=== PATIENT | female | born 1980 | race Caucasian/White ===

== ENCOUNTER 2025-07-10 01:46 | Emergency (ER) | payer SELFPAY ==
[2025-07-10 01:48] VITALS: BP 105/73
[2025-07-10 02:00] VITALS: BP 109/71
--- NOTE | 2025-07-10 02:14 | ED.GENMED ---
History of Present Illness
General
Chief Complaint: Alcohol Problem
Source: patient and ambulance crew
Time Seen by Provider: 07/10/25 02:00
History of Present Illness
History of Present Illness:
45-year-old female presenting to the emergency department for evaluation after she was found outside a restaurant where she had eaten, reportedly intoxicated, fell asleep on the bench, also admits to using marijuana this evening. Patient states
that she had 3 alcoholic beverages tonight. She had been out eating dinner with a friend that she had not seen in a long time. Patient arrives to the ER clearly intoxicated without any specific concerns.
Past History
Past History
ED Past Medical History: None
ED Past Surgical History: None
Social History
Tobacco: Non-smoker
Alcohol: Occasional
Drug: Marijuana
Personal: Single
Living: with family
Review of Systems
Review of Systems
All Other Systems: ROS reviewed and negative except as documented in HPI and ROS
Phy Exam
Physical Exam
Physical Exam:
GENERAL: Sleepy, arousable to voice, slurring speech, smells of alcohol
HEAD: Normocephalic atraumatic
EYE: conjunctiva clear, pupils 4 mm, sluggish
NECK: Supple
ENT: o/p clr, mmm.
CARDIAC: Regular rate and rhythm
LUNGS: Clear breath sounds bilaterally, no acute respiratory distress, no wheezes/rales/rhonchi
NEUROLOGICAL: sleepy but does answer questions appropriately
SKIN: Warm and dry, skin intact.
MUSCULOSKELETAL: well perfused.
PSYCH: Normal and appropriate interaction.
Scores
Heart Failure Risk
Heart Failure Risk Score: Not Applicable
Heart Score for Chest Pain Patients
STEMI patient?: Not applicable
Withdrawal Assessment of Alcohol
Withdrawal Assessment Completed?: Not applicable
Course
Vital Signs
Initial and Last Documented VS:
Initial Vital Signs
BP Pulse Ox
105/73 96
07/10/25 01:48 07/10/25 01:48
Last Documented Vital Signs
Temp Pulse Resp BP Pulse Ox
96.9 F L 70 18 118/72 96
07/10/25 05:51 07/10/25 05:51 07/10/25 05:51 07/10/25 06:00 07/10/25 05:30
MDM/Problems Addressed
Differential Diagnosis Includes:
Acute Alcohol Intoxication
Polysubstance use
Less concern for infectious etiology
MDM/Problems Addressed:
45-year-old female presenting to the emergency department for evaluation of what appears to be acute alcohol intoxication. She is very sleepy but able to answer questions appropriately. Will observe in the ER. No obvious emergent pathologies but
patient clearly not able to be sent home at present time. Patient noted she lives with mother who does live locally
*Pulse Oximetry
SaO2: 95
Oxygen Mode of Delivery: Room air
Patient hypoxic: no
*Critical Care Note
Total Time (30-74mins, 75-104mins- exclusive of procedures): Not Applicable
ED Attending Note
-
Portions of this chart may have been created with voice recognition software.� Occasional wrong word or��sound alike� substitutions may have occurred due to the inherent limitations of voice recognition software.
Discharge Plan
Departure
Patient Disposition: Home (Routine Discharge)
Date of Disposition: 07/10/25
Time of Disposition: 02:40
Patient with high blood pressure during this ER visit?: No
Discharge Problem:
Alcohol intoxication
Instructions: Alcohol Poisoning (DC)
Interventions
Interventions:
*Risk Screen - Suicide Last Done: 07/10/25 01:48
*General Assessment Last Done: 07/10/25 01:48
*Neglect/Abuse Screening Last Done: 07/10/25 01:48
*ED- Fall Risk Assessment Last Done: 07/10/25 01:48
*ED COVID-19 Vaccine History Last Done: 07/10/25 07:30
*Nursing Disposition Last Done: 07/10/25 07:30
ED- Neurological Assessment Last Done: 07/10/25 01:48
ED-Psychological Assessment Last Done: 07/10/25 01:48
Discharge Date and Time
Discharge Date/Time: 07/10/25 07:30
Print Language: [place]
[2025-07-10 03:00] VITALS: BP 103/67
[2025-07-10 04:00] VITALS: BP 102/66
[2025-07-10 05:00] VITALS: BP 100/66
[2025-07-10 06:00] VITALS: BP 118/72
== END 2025-07-10 07:30 | disposition home or self-care (01) ==
LOC: EMR 01:46
PROVIDERS: EMERGENCY PHYSICIAN Emergency Medicine; FAMILY PHYSICIAN Family Medicine
DX: F10.129 Alcohol abuse with intoxication, unspecified (principal); F12.90 Cannabis use, unspecified, uncomplicated
CPT/HCPCS: 99283